=== PATIENT | female | born 1960 | race Caucasian/White ===

== ENCOUNTER 2020-11-20 13:13 | Outpatient (CLI) | payer OTHER | END 2020-11-20 13:14 | disposition home or self-care (01) | LOC: COV 13:13 | PROVIDERS: ATTEND Surgery | DX: Z01.812 Encounter for preprocedural laboratory examination (principal); K21.9 Gastro-esophageal reflux disease without esophagitis; Z86.010 Personal history of colon polyps; Z20.822 Contact with and (suspected) exposure to COVID-19 ==

== ENCOUNTER 2020-11-23 08:00 | Day surgery (SDC) | payer OTHER ==
[~2020-11-23 08:00] MED LIST: SODIUM/POTASSIUM/MAG SULFATES 354 ML PREP KIT PO SCH
[2020-11-23] MEDS ORDERED: LACTATED RINGERS 1,000 ML IV ONE ×2 (08:04→10:00)
[2020-11-23] MEDS ORDERED: fentaNYL 250 MCG/5 ML VIAL ONE (08:49)
[2020-11-23] MEDS ORDERED: LIDO GARGLE 30 ML BOTTLE ONE (08:49)
[2020-11-23] MEDS ORDERED: MIDAZOLAM 2 MG/2 ML VIAL ONE ×3 (08:49→09:34)
[2020-11-23] MEDS ORDERED: BENZOCAINE/TETRACAINE/BUTAMBEN 20 GM TOP ONE (08:50)
[2020-11-23] MEDS ORDERED: LIDO GARGLE 30 ML BOTTLE PO ONE (08:50)
[2020-11-23 10:19] VITALS: BP 116/69
== END 2020-11-23 08:01 | disposition home or self-care (01) ==
LOC: SDS 08:00
PROVIDERS: ATTEND Surgery
PROC: 0DB68ZX Excision of Stomach, Via Natural or Artificial Opening Endoscopic, Diagnostic (ICD-10-PCS; 2020-11-23)
PROC: 0DB28ZX Excision of Middle Esophagus, Via Natural or Artificial Opening Endoscopic, Diagnostic (ICD-10-PCS; 2020-11-23)
PROC: 0DB48ZX Excision of Esophagogastric Junction, Via Natural or Artificial Opening Endoscopic, Diagnostic (ICD-10-PCS; 2020-11-23)
PROC: 0DBK8ZZ Excision of Ascending Colon, Via Natural or Artificial Opening Endoscopic (ICD-10-PCS; principal; 2020-11-23 08:15)
PROC: 0DB98ZX Excision of Duodenum, Via Natural or Artificial Opening Endoscopic, Diagnostic (ICD-10-PCS; 2020-11-23 08:15)
DX: Z12.11 Encounter for screening for malignant neoplasm of colon (principal); D12.2 Benign neoplasm of ascending colon; K29.50 Unspecified chronic gastritis without bleeding; K21.00 Gastro-esophageal reflux disease with esophagitis, without bleeding; K57.30 Diverticulosis of large intestine without perforation or abscess without bleeding; K64.4 Residual hemorrhoidal skin tags; K64.8 Other hemorrhoids; E78.5 Hyperlipidemia, unspecified; F32.9 Major depressive disorder, single episode, unspecified; F41.9 Anxiety disorder, unspecified
CPT/HCPCS: 43239; 45385; A9270; J3010; J7120

== ENCOUNTER 2021-02-18 13:33 | Outpatient (CLI) | payer OTHER | END 2021-02-18 13:34 | disposition home or self-care (01) | LOC: RT 13:33 | PROVIDERS: ATTEND Registered Nurse | DX: R05.3 Chronic cough (principal) | CPT/HCPCS: 94010; 94727; 94729 ==

== ENCOUNTER 2023-03-20 08:06 | Outpatient (CLI) | payer OTHER ==
--- NOTE | 2023-03-23 10:59 | Mammography Report ---
BILATERAL DIGITAL SCREENING MAMMOGRAM 3D/2D: 03/20/2023 CLINICAL: Baseline exam. Routine screening. No prior exams were available for comparison. Both breasts are almost entirely fatty (category a/<25% glandular tissue). No significant masses, calcifications, or other findings are seen in either breast. IMPRESSION: NEGATIVE There is no mammographic evidence of malignancy. A 1 year screening mammogram is recommended. Based on the Tyrer Cuzick model (a risk assessment model) the patients lifetime risk is 10.2% and he r 10 year risk is 4.4%. According to the ACR, ACS, and NCCN guidelines, an annual breast MRI exam omayra ng with mammogram is recommended if the patients lifetime risk is 20% or greater. This exam was interpreted at Station ID: [id number]. NOTE: For mammograms, a report in lay terms will be sent to the patient. Approximately 15% of breast malignancies will not be visualized mammographically. In the management of a palpable breast mass, a negative mammogram must not discourage biopsy of a clinically suspicious lesion. Electronically Signed By: Jael cuellar/candie:03/20/2023 16:01:19 letter sent: No_Letter ACR BI-RADS Category 1: Negative 3341F PARENCHYMAL PATTERN: (F) - The breast(s) demonstrate(s) diffuse fatty replacement. BI-RADS CATEGORY: (1) - 1 Mammogram [id number] 1 year screening LATERALITY: (B)
== END 2023-03-20 08:07 | disposition home or self-care (01) ==
LOC: DI 08:06
PROVIDERS: ATTEND Registered Nurse
DX: Z12.31 Encounter for screening mammogram for malignant neoplasm of breast (principal)

== ENCOUNTER 2023-03-20 08:09 | Outpatient (CLI) | payer OTHER ==
--- NOTE | 2023-03-20 15:38 | DEXA Report ---
PROCEDURE: Dexa Spine and/or Hip INDICATIONS: SCREENING FOR OSTEOPOROSIS TECHNIQUE: Dual energy x-ray absorptiometry (DXA) was performed on a [employer] System. Regions measur ed are the AP Spine, femoral neck, and if needed forearm. COMPARISON: None FINDINGS: Lumbar Spine: Bone Mineral Density 1.385 g/cm/cm,T score 1.7. Normal bone density Left Femoral Neck: Bone Mineral Density 0.881 g/cm/cm, T score -1.1. Left Hip: Bone Mineral Density 0.954 g/cm/cm,T score -0.4. Normal bone density (T score greater or equal to -1.0: NORMAL) (T score from -1.1 to -2.4: OSTEOPENIA) (T score less than or equal to -2.5 to: OSTEOPOROSIS) Impression: By WHO criteria, this patient has normal bone mineral density. Patients with diagnosis of osteoporosis or osteopenia should have regular bone mineral density assess ment. For those eligible for Medicare, routine testing is allowed once every 2 years. Testing frequ ency can be increased for patients who have rapidly progressing disease or for those who are receivin g medical therapy to restore bone mass. Reviewed by: Obed Amador MD on 03/20/2023 3:36 PM PST Approved by: Obed Amador MD on 03/20/2023 3:36 PM PST Station ID: [id number]
== END 2023-03-20 08:10 | disposition home or self-care (01) ==
LOC: DI 08:09
PROVIDERS: ATTEND Registered Nurse
DX: Z13.820 Encounter for screening for osteoporosis (principal)

== ENCOUNTER 2023-03-20 08:10 | Outpatient (CLI) | payer OTHER ==
--- NOTE | 2023-03-20 09:45 | Ultrasound Report ---
PROCEDURE: Head or Neck Soft Tissue INDICATIONS: THYROID NODULE TECHNIQUE: Real-time scanning was performed of the thyroid gland, with image documentation. COMPARISON: None FINDINGS: Right: Thyroid lobe measures 4.9 x 1.1 x 1.4 cm, and is homogeneous in echotexture. Left: Thyroid lobe measures 5.1 x 0.9 x 1.4 cm, and is homogenous in echotexture. Isthmus: 2 mm thick. Nodule number: One Location: Right mid thyroid lobe Size: 0.5 x 0.5 x 0.3 cm. Composition: Cystic / almost completely cystic (0 points). Echogenicity: Anechoic (0 points). Shape: wider than tall (0 points). Margins: Smooth (0 points). Echogenic foci: Macrocalcification (1 point). Total points: 1 ACR TI-RADS category: TI-RADS 2: Not suspicious. 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 No imaging follow-up required. Otherwise, unremarkable sonographic evaluation of the thyroid gland. ACR TI-RADS definitions and recommendations: TI-RADS 1 (benign): 0 points. FNA not needed. TI-RADS 2 (not suspicious): 2 points. FNA not needed. TI-RADS 3 (mildly suspicious): 3 points. "FNA if 2.5 cm or larger, follow up if 1.5 cm or larger (at 1, 3, and 5 years). TI-RADS 4 (moderately suspicious): 4-6 points. "FNA if 1.5 cm or larger, follow up if 1 cm or larger (at 1, 2, 3, and 5 years). TI-RADS 5 (highly suspicious): 7 points or more. "FNA if 1 cm or larger, follow up if 0.5 cm or larger (every year for 5 years). Reviewed by: Obed Amador MD on 03/20/2023 9:44 AM PST Approved by: Obed Amador MD on 03/20/2023 9:44 AM PST Station ID: [id number]
== END 2023-03-20 08:11 | disposition home or self-care (01) ==
LOC: DI 08:10
PROVIDERS: ATTEND Registered Nurse
DX: E04.1 Nontoxic single thyroid nodule (principal); Z13.820 Encounter for screening for osteoporosis